=== PATIENT | male | born 1990 | race Caucasian/White ===

== ENCOUNTER 2019-10-15 19:14 | Observation (INO) | payer OTHER ==
[2019-10-15] MEDS ORDERED: Sodium Chloride 0.9% 10 ML Syringe FLUSH PRN (19:49)
[2019-10-15] MEDS ORDERED: Sodium Chloride 0.9% 1,000 ML IV ONE ×2 (19:49→21:15)
[2019-10-15] MEDS ORDERED: Ketorolac 30 MG/ML SDV IVPUSH ONE (19:49)
[2019-10-15] MEDS ORDERED: cefTRIAXone 2 GM in Premix Bag 1 BAG IV ONE (19:49)
[2019-10-15] MEDS ORDERED: Sodium Chloride 0.9% 2.5 ML Syringe FLUSH PRN (19:49)
[2019-10-15] MEDS ORDERED: Acetaminophen 500 MG Tab PO ONE (19:50)
[2019-10-15] MEDS ORDERED: Ondansetron 4 MG/2 ML SDV IVPUSH ONE (19:52)
--- NOTE | 2019-10-15 19:52 | EDM.PDOC ---
ED HPI GENERAL MEDICAL PROBLEM - General Chief Complaint: Genitourinary Problem Stated Complaint: FEVER Time Seen by Provider: 10/15/19 19:29 - History of Present Illness INITIAL COMMENTS - FREE TEXT/NARRATIVE: HISTORY AND PHYSICAL: History of present illness: The patient is a 28-year-old male with no significant past medical history and does not believe he took his flu shot this year and presents with persistent symptoms of fevers and body aches headache sore throat abdominal pain and vomiting the patient says that he had the symptoms last week and was seen in the clinic on October [address] Logan and he had testing performed. Per the computer he had labs influenza strep and a urine which showed signs of a UTI and he was treated with Bactrim. The culture came back resistant to Bactrim and when I asked the patient if he was contacted by the clinic to change his antibiotics he told me that he did get a message but he did not understand and he did not call back. He is currently taking Bactrim for which the E. coli in his urine culture is resistant. The patient tells me he is able to take sips of fluids but he has small sour burps and vomiting in his mouth when he tries to eat solids. Not had any large episodes of vomiting but just burping and having a small amount of vomit in his mouth. He still has urinary symptoms of frequency urgency and burning. He has no flank pain and he does have some diffuse upper abdominal pain with nausea. He has had no diarrhea. He has had no runny nose or drainage but he does have a sore throat and he says he has a diffuse headache similar to what he had last week when he was seen in the clinic. The headache has persisted and it is not changed in location or character. He says that it is all over and it is not necessarily in one location. The last time he took Tylenol was at 8:00 this morning and he is not taking any ibuprofen. Review of systems: As per history of present illness and below otherwise all systems reviewed and negative. Past medical history: As per history of present illness and as reviewed below otherwise noncontributory. Surgical history: As per history of present illness and as reviewed below otherwise noncontributory. Social history: No reported history of drug or alcohol abuse. Family history: As per history of present illness and as reviewed below otherwise noncontributory. Physical exam: General: Well-developed well-nourished thin man who is nontoxic but looks low energy and drained on my evaluation. He is febrile and mildly tachycardic and the remainder of the vitals have also been seen by me. He is speaking clearly without breathlessness or hoarse or muffled voice HEENT: Atraumatic, normocephalic, pupils reactive, negative for conjunctival pallor or scleral icterus, mucous membranes moist, throat clear of exudates and there is some oropharyngeal erythema, there is no cervical adenopathy or nuchal rigidity and no discrete sinus tenderness, neck supple, nontender, trachea midline. Lungs: Clear to auscultation with slightly diminished breath sounds throughout but no wheezing stridor or work of breathing, breath sounds equal bilaterally, chest nontender. Heart: S1S2, regular rhythm and slightly tachycardic rate on my evaluation but no overt murmurs, negative for clicks, rubs, or JVD. Abdomen: Soft, nondistended, diffuse abdominal tenderness more in the upper abdomen but no rebound or guarding and the tenderness is mild and does not localize right or left. Negative for masses or hepatosplenomegaly. Negative for costovertebral tenderness. Pelvis: Stable nontender. Genitourinary: Stickles are descended bilaterally and there is no evidence of any swelling or tenderness. There is no tenderness in the perineal skin no erythematous changes or lesions. The patient indicates the base of the penis on the underside and his as his area of greatest discomfort but there is no anatomic findings on my evaluation Rectal: Deferred. Extremities: Atraumatic, negative for cords or calf pain. Neurovascular unremarkable. Neuro: Awake, alert, oriented. Cranial nerves II through XII unremarkable. Cerebellum unremarkable. Motor and sensory unremarkable throughout. Exam nonfocal. Diagnostics: Influenza rapid strep CBC CMP lactic acid blood cultures UA with micro urine culture chest x-ray CT abd pelvis Therapeutics: IV fluids Toradol Tylenol Zofran motrin tramadol low-dose morphine His labs are from October 11 were reviewed and they did include a urine for gonorrhea and chlamydia which were negative. Patient and family at bedside are aware of all testing results and the patient does overall look clinically improved and his vitals are normalizing. He says that there is still a lot of discomfort with urination and urgency and he is only been making small volumes and says that he feels a lot of pressure in the underside base of his penis with urination. He has no testicular pain or swelling. He also says that he feels less nauseated and would like to try some fluids or popsicle. He says that he still has a headache which is like a headband around the top of his head but it is not posterior and he has no neck pain. I will discussed this case with Dr. Scales for observation admission and the patient is agreeable. 2010: Was discussed with Dr. Scales who agrees with observation admission. Patient is agreeable Impression: Urosepsis secondary to untreated UTI diagnosed last week, rule out prostatitis Headache body aches malaise Definitive disposition and diagnosis as appropriate pending reevaluation and review of above. Body\ Pain Score (Numeric/FACES): 9 - Related Data Allergies Allergy/AdvReac Type Severity Reaction Status Date / Time No Known Allergies Allergy Verified 10/15/19 19:51 Home Meds: Home Meds Sulfamethoxazole/Trimethoprim [Bactrim Ds Tablet] 1 each PO ASDIRECTED 10/15/19 [History] ED ROS GENERAL - Review of Systems Review Of Systems: Comprehensive ROS is negative, except as noted in HPI. ED EXAM, GENERAL - Physical Exam Exam: See Below (See dictation) Course - Vital Signs Last Recorded V/S: Last Vital Signs Temp 37.6 C 10/15/19 22:01 Pulse 77 10/15/19 22:01 Resp 22 H 10/15/19 22:01 BP 102/48 L 10/15/19 22:01 Pulse Ox 95 10/15/19 22:01 - Orders/Labs/Meds Orders: Active Orders 24 hr Category Date Time Status CULTURE BLOOD [BC] Stat Lab 10/15/19 20:15 Received CULTURE BLOOD [BC] Stat Lab 10/15/19 20:34 Received CULTURE STREP A CONFIRMATION [] Stat Lab 10/15/19 20:16 Results CULTURE URINE [] Stat Lab 10/15/19 20:27 Received STREP SCRN A RAPID W CULT CONF [] Stat Lab 10/15/19 20:16 Results Sodium Chloride 0.9% [Normal Saline] 1,000 ml Med 10/15/19 22:30 Active IV ASDIRECTED Sodium Chloride 0.9% [Saline Flush] Med 10/15/19 19:49 Active 10 ml FLUSH ASDIRECTED PRN Sodium Chloride 0.9% [Saline Flush] Med 10/15/19 19:49 Active 2.5 ml FLUSH ASDIRECTED PRN Blood Culture x2 Reflex Set [OM.PC] Stat Ot 10/15/19 19:48 Ordered Saline Lock Insert [OM.PC] Stat Ot 10/15/19 19:47 Ordered Medication Orders Sodium Chloride (Normal Saline) 1,000 mls @ 150 mls/hr IV ASDIRECTED BRADY Sodium Chloride (Saline Flush) 10 ml FLUSH ASDIRECTED PRN PRN Reason: Keep Vein Open Sodium Chloride (Saline Flush) 2.5 ml FLUSH ASDIRECTED PRN PRN Reason: Keep Vein Open Labs: Laboratory Tests 10/15/19 10/15/19 10/15/19 Range/Units 20:15 20:15 20:15 WBC 19.38 H (4.0-11.0) K/uL RBC 4.62 (4.50-5.90) M/uL Hgb 14.2 (13.0-17.0) g/dL Hct 41.3 (38.0-50.0) % MCV 89.4 (80.0-98.0) fL MCH 30.7 (27.0-32.0) pg MCHC 34.4 (31.0-37.0) g/dL RDW Std Deviation 38.8 (28.0-62.0) fl RDW Coeff of Gloria 12 (11.0-15.0) % Plt Count 203 (150-400) K/uL MPV 9.20 (7.40-12.00) fL Neut % (Auto) 89.3 H (48.0-80.0) % Lymph % (Auto) 3.5 L (16.0-40.0) % [place] % (Auto) 7.1 (0.0-15.0) % Eos % (Auto) 0.0 (0.0-7.0) % Baso % (Auto) 0.1 (0.0-1.5) % Neut # (Auto) 17.3 H (1.4-5.7) K/uL Lymph # (Auto) 0.7 (0.6-2.4) K/uL [place] # (Auto) 1.4 H (0.0-0.8) K/uL Eos # (Auto) 0.0 (0.0-0.7) K/uL Baso # (Auto) 0.0 (0.0-0.1) K/uL Nucleated RBC % 0.0 /100WBC Nucleated RBCs # 0 K/uL Lactate 1.6 (0.20-2.00) mmol/L Sodium 138 (136-148) mmol/L Potassium 3.5 (3.5-5.1) mmol/L Chloride 100 (98-107) mmol/L Carbon Dioxide 26.6 (21.0-32.0) mmol/L BUN 14 (7.0-18.0) mg/dL Creatinine 1.3 (0.8-1.3) mg/dL Est Cr Clr Drug Dosing 90.62 mL/min Estimated GFR (MDRD) > 60.0 ml/min Glucose 122 H (74-106) mg/dL Calcium 8.9 (8.5-10.1) mg/dL Total Bilirubin 0.6 (0.2-1.0) mg/dL AST 14 L (15-37) IU/L ALT 19 (14-63) IU/L Alkaline Phosphatase 67 (46-116) U/L Total Protein 8.1 (6.4-8.2) g/dL Albumin 3.9 (3.4-5.0) g/dL Globulin 4.2 H (2.6-4.0) g/dL Albumin/Globulin Ratio 0.9 (0.9-1.6) Urine Color Urine Appearance Urine pH (5.0-8.0) Ur Specific [place] (1.001-1.035) Urine Protein (NEGATIVE) mg/dL Urine Glucose (UA) (NEGATIVE) mg/dL Urine Ketones (NEGATIVE) mg/dL Urine Occult Blood (NEGATIVE) Urine Nitrite (NEGATIVE) Urine Bilirubin (NEGATIVE) Urine Urobilinogen (<2.0) EU/dL Ur Leukocyte Esterase (NEGATIVE) Urine RBC (0-2/HPF) Urine WBC (0-5/HPF) Ur Epithelial Cells (NONE-FEW) Urine Bacteria (NEGATIVE) 10/15/19 Range/Units 20:27 WBC (4.0-11.0) K/uL RBC (4.50-5.90) M/uL Hgb (13.0-17.0) g/dL Hct (38.0-50.0) % MCV (80.0-98.0) fL MCH (27.0-32.0) pg MCHC (31.0-37.0) g/dL RDW Std Deviation (28.0-62.0) fl RDW Coeff of Gloria (11.0-15.0) % Plt Count (150-400) K/uL MPV (7.40-12.00) fL Neut % (Auto) (48.0-80.0) % Lymph % (Auto) (16.0-40.0) % [place] % (Auto) (0.0-15.0) % Eos % (Auto) (0.0-7.0) % Baso % (Auto) (0.0-1.5) % Neut # (Auto) (1.4-5.7) K/uL Lymph # (Auto) (0.6-2.4) K/uL [place] # (Auto) (0.0-0.8) K/uL Eos # (Auto) (0.0-0.7) K/uL Baso # (Auto) (0.0-0.1) K/uL Nucleated RBC % /100WBC Nucleated RBCs # K/uL Lactate (0.20-2.00) mmol/L Sodium (136-148) mmol/L Potassium (3.5-5.1) mmol/L Chloride (98-107) mmol/L Carbon Dioxide (21.0-32.0) mmol/L BUN (7.0-18.0) mg/dL Creatinine (0.8-1.3) mg/dL Est Cr Clr Drug Dosing mL/min Estimated GFR (MDRD) ml/min Glucose (74-106) mg/dL Calcium (8.5-10.1) mg/dL Total Bilirubin (0.2-1.0) mg/dL AST (15-37) IU/L ALT (14-63) IU/L Alkaline Phosphatase (46-116) U/L Total Protein (6.4-8.2) g/dL Albumin (3.4-5.0) g/dL Globulin (2.6-4.0) g/dL Albumin/Globulin Ratio (0.9-1.6) Urine Color YELLOW Urine Appearance CLOUDY Urine pH 6.0 (5.0-8.0) Ur Specific [place] 1.025 (1.001-1.035) Urine Protein NEGATIVE (NEGATIVE) mg/dL Urine Glucose (UA) NEGATIVE (NEGATIVE) mg/dL Urine Ketones NEGATIVE (NEGATIVE) mg/dL Urine Occult Blood MODERATE H (NEGATIVE) Urine Nitrite NEGATIVE (NEGATIVE) Urine Bilirubin NEGATIVE (NEGATIVE) Urine Urobilinogen 0.2 (<2.0) EU/dL Ur Leukocyte Esterase LARGE H (NEGATIVE) Urine RBC 2-4 (0-2/HPF) Urine WBC 70-80 (0-5/HPF) Ur Epithelial Cells OCCASIONAL (NONE-FEW) Urine Bacteria FEW (NEGATIVE) Meds: Medications Generic Name Dose Route Start Last Admin Trade Name Freq PRN Reason Stop Dose Admin Sodium Chloride 1,000 mls @ 150 mls/hr 10/15/19 22:30 Normal Saline IV ASDIRECTED BRADY Sodium Chloride 10 ml 10/15/19 19:49 Saline Flush FLUSH ASDIRECTED PRN Keep Vein Open Sodium Chloride 2.5 ml 10/15/19 19:49 Saline Flush FLUSH ASDIRECTED PRN Keep Vein Open Discontinued Medications Generic Name Dose Route Start Last Admin Trade Name Freq PRN Reason Stop Dose Admin Acetaminophen 1,000 mg 10/15/19 19:50 10/15/19 20:19 Tylenol Extra Strength PO 10/15/19 19:51 1,000 mg ONETIME ONE Administration Ceftriaxone Sodium/Dextrose 2 50 mls @ 100 mls/hr 10/15/19 19:49 10/15/19 20: 20 gm/ Premix IV 10/15/19 20:18 100 mls/hr ONETIME ONE Administration Sodium Chloride 1,000 mls @ 999 mls/hr 10/15/19 19:49 10/15/19 20:20 Normal Saline IV 10/15/19 20:49 999 mls/hr STAT ONE Administration Sodium Chloride 1,000 mls @ 999 mls/hr 10/15/19 21:15 10/15/19 21:20 Normal Saline IV 10/15/19 22:15 999 mls/hr STAT ONE Administration Ibuprofen 800 mg 10/15/19 21:04 10/15/19 21:11 Motrin PO 10/15/19 21:05 800 mg ONETIME ONE Administration Iopamidol 100 ml 10/15/19 21:28 Isovue-370 (76%) IVPUSH 10/15/19 21:29 ONETIME STA Ketorolac Tromethamine 30 mg 10/15/19 19:49 10/15/19 20:19 Toradol IVPUSH 10/15/19 19:50 30 mg ONETIME ONE Administration Morphine Sulfate 2 mg 10/15/19 22:08 Morphine IVPUSH 10/15/19 22:09 ONETIME ONE Ondansetron HCl 4 mg 10/15/19 19:52 10/15/19 20:19 Zofran IVPUSH 10/15/19 19:53 4 mg ONETIME ONE Administration Tramadol HCl 50 mg 10/15/19 21:13 10/15/19 21:19 Ultram PO 10/15/19 21:14 50 mg ONETIME ONE Administration Departure - Departure Time of Disposition: 22:19 Disposition: Refer to Observation Condition: Fair Clinical Impression: UTI (urinary tract infection) Qualifiers: Urinary tract infection type: site unspecified Hematuria presence: without hematuria Qualified Code(s): N39.0 - Urinary tract infection, site not specified Fever Qualifiers: Fever type: unspecified Qualified Code(s): R50.9 - Fever, unspecified - Discharge Information Referrals: Dominique Logan MD [Primary Care Provider] - Forms: ED Department Discharge Sepsis Event Note - Focused Exam Vital Signs: Vital Signs Temp Temp Pulse Resp BP Pulse Ox 10/15/19 22:01 37.6 C 77 22 H 102/48 L 95 10/15/19 21:11 38.1 C 10/15/19 21:02 38.1 C 87 20 108/50 L 97 10/15/19 20:49 38.1 C 10/15/19 20:37 95 18 106/56 L 99 10/15/19 20:19 38.8 C H 10/15/19 19:51 39.0 C H 110 H 16 101/52 L 96 Date Exam was Performed: 10/15/19 Time Exam was Performed: 22:18 - My Orders Last 24 Hours: My Active Orders 10/15/19 19:47 Saline Lock Insert [OM.PC] Stat 10/15/19 19:48 Blood Culture x2 Reflex Set [OM.PC] Stat 10/15/19 19:49 Sodium Chloride 0.9% [Saline Flush] 10 ml FLUSH ASDIRECTED PRN Sodium Chloride 0.9% [Saline Flush] 2.5 ml FLUSH ASDIRECTED PRN 10/15/19 20:15 CULTURE BLOOD [BC] Stat 10/15/19 20:16 CULTURE STREP A CONFIRMATION [RM] Stat STREP SCRN A RAPID W CULT CONF [RM] Stat 10/15/19 20:27 CULTURE URINE [RM] Stat 10/15/19 20:34 CULTURE BLOOD [BC] Stat 10/15/19 22:30 Sodium Chloride 0.9% [Normal Saline] 1,000 ml IV ASDIRECTED - Assessment/Plan Last 24 Hours: My Active Orders 10/15/19 19:47 Saline Lock Insert [OM.PC] Stat 10/15/19 19:48 Blood Culture x2 Reflex Set [OM.PC] Stat 10/15/19 19:49 Sodium Chloride 0.9% [Saline Flush] 10 ml FLUSH ASDIRECTED PRN Sodium Chloride 0.9% [Saline Flush] 2.5 ml FLUSH ASDIRECTED PRN 10/15/19 20:15 CULTURE BLOOD [BC] Stat 10/15/19 20:16 CULTURE STREP A CONFIRMATION [RM] Stat STREP SCRN A RAPID W CULT CONF [RM] Stat 10/15/19 20:27 CULTURE URINE [RM] Stat 10/15/19 20:34 CULTURE BLOOD [BC] Stat 10/15/19 22:30 Sodium Chloride 0.9% [Normal Saline] 1,000 ml IV ASDIRECTED
--- NOTE | 2019-10-15 20:30 | CR ---
Chest: 2 views of the chest were obtained. Comparison: No previous chest imaging. Heart size and mediastinum are normal. Lungs are clear. No acute parenchymal change is seen. Bony structures appear within normal limits for the patient's age. Impression: 1. Nothing acute is seen on 2 view chest x-ray. Diagnostic code #1 Study was dictated in [place] Standard Time
[2019-10-15 20:54] LABS: BLOOD UREA NITROGEN,BUN 14 mg/dL (7.0-18.0); CARBON DIOXIDE,CO2 26.6 mmol/L (21.0-32.0); CHLORIDE,CL 100 mmol/L (98-107); GLUCOSE RANDOM 122 mg/dL (74-106); POTASSIUM,K 3.5 mmol/L (3.5-5.1); SODIUM,NA 138 mmol/L (136-148)
[2019-10-15] MEDS ORDERED: Ibuprofen 800 MG Tab PO ONE (21:04)
[2019-10-15] MEDS ORDERED: traMADol 50 MG Tab PO ONE (21:13)
[2019-10-15] MEDS ORDERED: Iopamidol 755 Mg/ML 100 ML Bottle IVPUSH STA (21:28)
--- NOTE | 2019-10-15 21:58 | CT ---
Indication: Abdominal pain Technique: Contrast enhanced axial CT imaging through the abdomen and pelvis. 100 mL Isovue 370 contrast agent was administered intravenously. Sagittal and coronal reconstructions are provided. Comparison: None Findings: There is no significant abnormality of the liver, gallbladder, spleen, pancreas, adrenal glands, and kidneys. The portal vein is patent. There is normal caliber of the abdominal aorta. There is no abdominal lymphadenopathy. The stomach and duodenum are unremarkable. There are no abnormally dilated small bowel loops. The appendix is noninflamed. There is no colonic wall thickening. No inflammatory changes are demonstrated in the mesentery. There is no free intraperitoneal fluid or air. Note is made of presence of bilateral chronic L5 pars interarticularis defects. There is no significant spondylolisthesis. The included lung bases are clear. Impression: 1. No acute process demonstrated in the abdomen and pelvis. 2. Incidental note of bilateral L5 pars defects without spondylolisthesis. Please note that all CT scans at this facility use dose modulation, iterative reconstruction, and/or weight-based dosing when appropriate to reduce radiation dose to as low as reasonably achievable. Dictated by José Luis Wang MD @ Oct 15 2019 9:44PM Signed by Dr. José Luis Wang @ Oct 15 2019 9:56PM
[2019-10-15] MEDS ORDERED: Morphine 2 MG/ML Syringe IVPUSH ONE (22:08)
[2019-10-15] MEDS ORDERED: Sodium Chloride 0.9% 1,000 ML IV SCH (22:30)
[2019-10-16] MEDS ORDERED: Ondansetron 4 MG/2 ML SDV IVPUSH PRN ×2 (04:18→07:49)
[2019-10-16] MEDS: Sodium Chloride 0.9% 1,000 ML IV SCH ×3 (04:59→21:11)
[2019-10-16 06:33] LABS: BLOOD UREA NITROGEN,BUN 11 mg/dL (7.0-18.0); CARBON DIOXIDE,CO2 25.1 mmol/L (21.0-32.0); CHLORIDE,CL 105 mmol/L (98-107); GLUCOSE RANDOM 119 mg/dL (74-106); POTASSIUM,K 3.3 mmol/L (3.5-5.1); SODIUM,NA 138 mmol/L (136-148)
[2019-10-16] MEDS ORDERED: Potassium Chloride 20 MEQ Tab.ER PO ONE (07:38)
[2019-10-16] MEDS: Acetaminophen 325 MG Tab PO PRN ×2 (08:10→13:12)
[2019-10-16] MEDS ORDERED: Magnesium Sulfate/Water 2 GM in Premix Bag 1 BAG IV ONE (11:59)
[2019-10-16] MEDS ORDERED: Enoxaparin 40 MG/0.4 ML Syringe SUBCUT SCH (12:00)
[2019-10-16] MEDS ORDERED: Sodium Chloride 0.9% 1,000 ML IV ONE (12:02)
--- NOTE | 2019-10-16 12:03 | PCM.HP.2 ---
H&P History of Present Illness - General Date of Service: 10/16/19 Admit Problem/Dx: Admission Diagnosis/Problem Admission Diagnosis/Problem Urosepsis - History of Present Illness Initial Comments - Free Text/Narative: The patient is a 28 year old male who denies significant past medical history who presented to the ER last night with fever/PALMA, body aches, chills, burning with urination, increased urinary urgency/frequency. Reports went to PCP on , diagnosed with UTI, sent home on Bactrim, urine culture grew out Ecoli resistant to Bactrim. At that appt she also tested him for gonorrhea, chlaymdia , syphillis, and HIV which were all negative Denies chest pain, shortness of breath, or abdominal pain. Eating and drinking ok. No hx of UTI in the past. In the ER, patient had leukocytosis of 19, UA with signs of infection, negative influenza/strep. CXR negative. CT ab/pelvis negative for acute issues. In the ER, he was febrile with temp of 102.2, tachycardic, and had soft blood pressures. Given Tylenol, Rocephin, ibuprofen, Toradol, morphine, zofran, Tramadol. PCP- Dr. Logan Body\ Pain Score (Numeric/FACES): 9 headache Pain Score (Numeric/FACES): 7 - Related Data Allergies/Adverse Reactions: Allergies Allergy/AdvReac Type Severity Reaction Status Date / Time No Known Allergies Allergy Verified 10/16/19 00:46 Home Medications: Home Meds Sulfamethoxazole/Trimethoprim [Bactrim Ds Tablet] 1 each PO ASDIRECTED 10/15/19 [History] Past Medical History - Past Health History Medical/Surgical History: Denies Medical/Surgical History HEENT History: Reports: None Cardiovascular History: Reports: None Respiratory History: Reports: None Gastrointestinal History: Reports: None Genitourinary History: Reports: None Musculoskeletal History: Reports: None Neurological History: Reports: None Psychiatric History: Reports: None Endocrine/Metabolic History: Reports: None Hematologic History: Reports: None Oncologic (Cancer) History: Reports: None Dermatologic History: Reports: None - Infectious Disease History Infectious Disease History: Reports: None Social & Family History - Family History Family Medical History: Noncontributory - Tobacco Use Smoking Status *Q: Current Every Day Smoker Years of Tobacco use: 22 Packs/Tins Daily: 1.2 - Caffeine Use Caffeine Use: Reports: Soda - Recreational Drug Use Recreational Drug Use: No H&P Review of Systems - Review of Systems: Review Of Systems: See Below General: Reports: Fever, Chills HEENT: Reports: Headaches Pulmonary: Reports: No Symptoms Cardiovascular: Reports: No Symptoms Gastrointestinal: Reports: Nausea. Denies: Vomiting Genitourinary: Reports: Dysuria, Frequency, Burning Musculoskeletal: Reports: No Symptoms Skin: Reports: No Symptoms Psychiatric: Reports: No Symptoms Neurological: Reports: No Symptoms Hematologic/Lymphatic: Reports: No Symptoms Immunologic: Reports: No Symptoms Exam - Exam Exam: See Below - Vital Signs Vital Signs: Last Vital Signs Temp 98.7 F 10/16/19 04:30 Pulse 87 10/16/19 04:30 Resp 18 10/16/19 04:30 BP 97/54 L 10/16/19 04:30 Pulse Ox 98 10/16/19 04:30 Weight: 84.051 kg - Exam General: Alert, Oriented HEENT: Conjunctiva Clear, EOMI, Mucosa Moist & Wright, Posterior Pharynx Clear, Pupils Equal, Pupils Reactive Neck: Supple Lungs: Clear to Auscultation, Normal Respiratory Effort Cardiovascular: Regular Rate, Regular Rhythm GI/Abdominal Exam: Normal Bowel Sounds, Soft, Non-Tender, No Distention (Male) Exam: Normal Inspection, Normal Prostate. No: Penile Lesions, Scrotal Swelling, Scrotum Tenderness (L), Scrotum Tenderness (R), Testicular Mass, Testicular Tenderness (L), Testicular Tenderness (R), Urethral Discharge Rectal (Males) Exam: Normal Exam, Normal Rectal Tone, Prostate Normal Extremities: No Pedal Edema Skin: Warm, Dry, Intact Neuro Extensive - Mental Status: Alert, Oriented x3 Psychiatric: Alert, Normal Affect, Normal Mood - Patient Data Lab Results Last 24 hrs: Laboratory Results - last 24 hr 10/15/19 10/15/19 10/15/19 Range/Units 20:15 20:15 20:15 WBC 19.38 H (4.0-11.0) K/uL RBC 4.62 (4.50-5.90) M/uL Hgb 14.2 (13.0-17.0) g/dL Hct 41.3 (38.0-50.0) % MCV 89.4 (80.0-98.0) fL MCH 30.7 (27.0-32.0) pg MCHC 34.4 (31.0-37.0) g/dL RDW Std Deviation 38.8 (28.0-62.0) fl RDW Coeff of Gloria 12 (11.0-15.0) % Plt Count 203 (150-400) K/uL MPV 9.20 (7.40-12.00) fL Neut % (Auto) 89.3 H (48.0-80.0) % Lymph % (Auto) 3.5 L (16.0-40.0) % Lamar % (Auto) 7.1 (0.0-15.0) % Eos % (Auto) 0.0 (0.0-7.0) % Baso % (Auto) 0.1 (0.0-1.5) % Neut # (Auto) 17.3 H (1.4-5.7) K/uL Lymph # (Auto) 0.7 (0.6-2.4) K/uL Lamar # (Auto) 1.4 H (0.0-0.8) K/uL Eos # (Auto) 0.0 (0.0-0.7) K/uL Baso # (Auto) 0.0 (0.0-0.1) K/uL Nucleated RBC % 0.0 /100WBC Nucleated RBCs # 0 K/uL Lactate 1.6 (0.20-2.00) mmol/L Sodium 138 (136-148) mmol/L Potassium 3.5 (3.5-5.1) mmol/L Chloride 100 (98-107) mmol/L Carbon Dioxide 26.6 (21.0-32.0) mmol/L BUN 14 (7.0-18.0) mg/dL Creatinine 1.3 (0.8-1.3) mg/dL Est Cr Clr Drug Dosing 90.62 mL/min Estimated GFR (MDRD) > 60.0 ml/min Glucose 122 H (74-106) mg/dL Calcium 8.9 (8.5-10.1) mg/dL Magnesium (1.8-2.4) mg/dL Total Bilirubin 0.6 (0.2-1.0) mg/dL AST 14 L (15-37) IU/L ALT 19 (14-63) IU/L Alkaline Phosphatase 67 (46-116) U/L Total Protein 8.1 (6.4-8.2) g/dL Albumin 3.9 (3.4-5.0) g/dL Globulin 4.2 H (2.6-4.0) g/dL Albumin/Globulin Ratio 0.9 (0.9-1.6) Urine Color Urine Appearance Urine pH (5.0-8.0) Ur Specific [place] (1.001-1.035) Urine Protein (NEGATIVE) mg/dL Urine Glucose (UA) (NEGATIVE) mg/dL Urine Ketones (NEGATIVE) mg/dL Urine Occult Blood (NEGATIVE) Urine Nitrite (NEGATIVE) Urine Bilirubin (NEGATIVE) Urine Urobilinogen (<2.0) EU/dL Ur Leukocyte Esterase (NEGATIVE) Urine RBC (0-2/HPF) Urine WBC (0-5/HPF) Ur Epithelial Cells (NONE-FEW) Urine Bacteria (NEGATIVE) 10/15/19 10/16/19 10/16/19 Range/Units 20:27 05:45 05:45 WBC 18.39 H (4.0-11.0) K/uL RBC 3.96 L (4.50-5.90) M/uL Hgb 12.1 L (13.0-17.0) g/dL Hct 35.5 L (38.0-50.0) % MCV 89.6 (80.0-98.0) fL MCH 30.6 (27.0-32.0) pg MCHC 34.1 (31.0-37.0) g/dL RDW Std Deviation 39.5 (28.0-62.0) fl RDW Coeff of Gloria 12 (11.0-15.0) % Plt Count 152 (150-400) K/uL MPV 9.30 (7.40-12.00) fL Neut % (Auto) 86.8 H (48.0-80.0) % Lymph % (Auto) 4.8 L (16.0-40.0) % Lamar % (Auto) 8.2 (0.0-15.0) % Eos % (Auto) 0.1 (0.0-7.0) % Baso % (Auto) 0.1 (0.0-1.5) % Neut # (Auto) 16.0 H (1.4-5.7) K/uL Lymph # (Auto) 0.9 (0.6-2.4) K/uL Lamar # (Auto) 1.5 H (0.0-0.8) K/uL Eos # (Auto) 0.0 (0.0-0.7) K/uL Baso # (Auto) 0.0 (0.0-0.1) K/uL Nucleated RBC % 0.0 /100WBC Nucleated RBCs # 0 K/uL Lactate (0.20-2.00) mmol/L Sodium 138 (136-148) mmol/L Potassium 3.3 L (3.5-5.1) mmol/L Chloride 105 (98-107) mmol/L Carbon Dioxide 25.1 (21.0-32.0) mmol/L BUN 11 (7.0-18.0) mg/dL Creatinine 1.0 (0.8-1.3) mg/dL Est Cr Clr Drug Dosing 125.58 mL/min Estimated GFR (MDRD) > 60.0 ml/min Glucose 119 H (74-106) mg/dL Calcium 7.7 L (8.5-10.1) mg/dL Magnesium (1.8-2.4) mg/dL Total Bilirubin (0.2-1.0) mg/dL AST (15-37) IU/L ALT (14-63) IU/L Alkaline Phosphatase (46-116) U/L Total Protein (6.4-8.2) g/dL Albumin (3.4-5.0) g/dL Globulin (2.6-4.0) g/dL Albumin/Globulin Ratio (0.9-1.6) Urine Color YELLOW Urine Appearance CLOUDY Urine pH 6.0 (5.0-8.0) Ur Specific [place] 1.025 (1.001-1.035) Urine Protein NEGATIVE (NEGATIVE) mg/dL Urine Glucose (UA) NEGATIVE (NEGATIVE) mg/dL Urine Ketones NEGATIVE (NEGATIVE) mg/dL Urine Occult Blood MODERATE H (NEGATIVE) Urine Nitrite NEGATIVE (NEGATIVE) Urine Bilirubin NEGATIVE (NEGATIVE) Urine Urobilinogen 0.2 (<2.0) EU/dL Ur Leukocyte Esterase LARGE H (NEGATIVE) Urine RBC 2-4 (0-2/HPF) Urine WBC 70-80 (0-5/HPF) Ur Epithelial Cells OCCASIONAL (NONE-FEW) Urine Bacteria FEW (NEGATIVE) 10/16/19 Range/Units 05:45 WBC (4.0-11.0) K/uL RBC (4.50-5.90) M/uL Hgb (13.0-17.0) g/dL Hct (38.0-50.0) % MCV (80.0-98.0) fL MCH (27.0-32.0) pg MCHC (31.0-37.0) g/dL RDW Std Deviation (28.0-62.0) fl RDW Coeff of Gloria (11.0-15.0) % Plt Count (150-400) K/uL MPV (7.40-12.00) fL Neut % (Auto) (48.0-80.0) % Lymph % (Auto) (16.0-40.0) % Lamar % (Auto) (0.0-15.0) % Eos % (Auto) (0.0-7.0) % Baso % (Auto) (0.0-1.5) % Neut # (Auto) (1.4-5.7) K/uL Lymph # (Auto) (0.6-2.4) K/uL Lamar # (Auto) (0.0-0.8) K/uL Eos # (Auto) (0.0-0.7) K/uL Baso # (Auto) (0.0-0.1) K/uL Nucleated RBC % /100WBC Nucleated RBCs # K/uL Lactate (0.20-2.00) mmol/L Sodium (136-148) mmol/L Potassium (3.5-5.1) mmol/L Chloride (98-107) mmol/L Carbon Dioxide (21.0-32.0) mmol/L BUN (7.0-18.0) mg/dL Creatinine (0.8-1.3) mg/dL Est Cr Clr Drug Dosing mL/min Estimated GFR (MDRD) ml/min Glucose (74-106) mg/dL Calcium (8.5-10.1) mg/dL Magnesium 1.6 L (1.8-2.4) mg/dL Total Bilirubin (0.2-1.0) mg/dL AST (15-37) IU/L ALT (14-63) IU/L Alkaline Phosphatase (46-116) U/L Total Protein (6.4-8.2) g/dL Albumin (3.4-5.0) g/dL Globulin (2.6-4.0) g/dL Albumin/Globulin Ratio (0.9-1.6) Urine Color Urine Appearance Urine pH (5.0-8.0) Ur Specific [place] (1.001-1.035) Urine Protein (NEGATIVE) mg/dL Urine Glucose (UA) (NEGATIVE) mg/dL Urine Ketones (NEGATIVE) mg/dL Urine Occult Blood (NEGATIVE) Urine Nitrite (NEGATIVE) Urine Bilirubin (NEGATIVE) Urine Urobilinogen (<2.0) EU/dL Ur Leukocyte Esterase (NEGATIVE) Urine RBC (0-2/HPF) Urine WBC (0-5/HPF) Ur Epithelial Cells (NONE-FEW) Urine Bacteria (NEGATIVE) Result Diagrams: 10/16/19 05:45 10/16/19 05:45 Navdeep Results Last 24 hrs: Microbiology 10/15/19 20:16 Group A Streptococcus Rapid Screen - Final Throat NEGATIVE STREP A SCREEN REFERENCE RANGE: NEGATIVE 10/15/19 19:33 Influenza Type A Antigen Screen - Final Nasopharyngeal Swab NEGATIVE INFLUENZA A VIRUS AG REFERENCE RANGE: NEGATIVE Influenza Type B Antigen Screen - Final NEGATIVE INFLUENZA B VIRUS AG REFERENCE RANGE: NEGATIVE Sepsis Event Note - Evaluation Sepsis Screening Result: Sepsis Risk - Focused Exam Vital Signs: Vital Signs Temp Pulse Resp BP Pulse Ox 10/16/19 04:30 98.7 F 87 18 97/54 L 98 Date Exam was Performed: 10/16/19 Time Exam was Performed: 13:10 Problem List Initiated/Reviewed/Updated: Yes Orders Last 24hrs: Active Orders 24 hr Category Date Time Status Patient Status [ADT] Stat ADT 10/15/19 22:21 Active Intake and Output [RC] ASDIRECTED Care 10/16/19 11:59 Ordered Vital Signs [RC] PER UNIT ROUTINE Care 10/16/19 11:59 Ordered Regular Diet [DIET] Diet 10/16/19 Lunch Ordered CULTURE BLOOD [BC] Stat Lab 10/15/19 20:15 Received CULTURE BLOOD [BC] Stat Lab 10/15/19 20:34 Received CULTURE STREP A CONFIRMATION [RM] Stat Lab 10/15/19 20:16 Results CULTURE URINE [] Stat Lab 10/15/19 20:27 Received STREP SCRN A RAPID W CULT CONF [] Stat Lab 10/15/19 20:16 Results Acetaminophen [Tylenol] Med 10/16/19 07:49 Active 650 mg PO Q4H PRN Enoxaparin [Lovenox] Med 10/16/19 12:00 Ordered 40 mg SUBCUT Q24H Magnesium Sulfate/Water [Magnesium Sulfate in Water Med 10/16/19 11:59 Ordered Premix] 2 gm Premix Bag 1 bag IV ONETIME Nicotine [Habitrol] Med 10/16/19 12:00 Ordered 14 mg TRDERM DAILY Ondansetron [Zofran] Med 10/16/19 04:18 Active 4 mg IVPUSH Q4H PRN Ondansetron [Zofran] Med 10/16/19 07:49 Active 4 mg IVPUSH Q4H PRN Sodium Chloride 0.9% [Normal Saline] 1,000 ml Med 10/15/19 22:30 Active IV ASDIRECTED Sodium Chloride 0.9% [Normal Saline] 1,000 ml Med 10/16/19 00:15 Active IV ASDIRECTED Sodium Chloride 0.9% [Normal Saline] 1,000 ml Med 10/16/19 12:02 Ordered IV STAT Sodium Chloride 0.9% [Saline Flush] Med 10/15/19 19:49 Active 10 ml FLUSH ASDIRECTED PRN Sodium Chloride 0.9% [Saline Flush] Med 10/15/19 19:49 Active 2.5 ml FLUSH ASDIRECTED PRN cefTRIAXone [Rocephin in Dextrose,Iso-Osm 2 GM/50 ML] 2 Med 10/16/19 18:00 Active gm Premix Bag 1 bag IV Q24H Blood Culture x2 Reflex Set [OM.PC] Stat Oth 10/15/19 19:48 Ordered Saline Lock Insert [OM.PC] Stat Oth 10/15/19 19:47 Ordered Resuscitation Status Routine Resus Stat 10/16/19 11:59 Ordered Medication Orders Acetaminophen (Tylenol) 650 mg PO Q4H PRN PRN Reason: Pain/Fever Last Admin: 10/16/19 08:10 Dose: 650 mg Enoxaparin Sodium (Lovenox) 40 mg SUBCUT Q24H [facility] Sodium Chloride (Normal Saline) 1,000 mls @ 150 mls/hr IV ASDIRECTED [facility] Last Admin: 10/15/19 23:15 Dose: 150 mls/hr Sodium Chloride (Normal Saline) 1,000 mls @ 150 mls/hr IV ASDIRECTED [facility] Last Admin: 10/16/19 04:59 Dose: 150 mls/hr Ceftriaxone Sodium/Dextrose 2 (gm/ Premix) 50 mls @ 100 mls/hr IV Q24H [facility] Magnesium Sulfate 2 gm/ Premix 50 mls @ 25 mls/hr IV ONETIME ONE Stop: 10/16/19 13:58 Nicotine (Habitrol) 14 mg TRDERM DAILY [facility] Ondansetron HCl (Zofran) 4 mg IVPUSH Q4H PRN PRN Reason: Nausea Last Admin: 10/16/19 04:57 Dose: 4 mg Ondansetron HCl (Zofran) 4 mg IVPUSH Q4H PRN PRN Reason: Nausea/Vomiting Sodium Chloride (Saline Flush) 10 ml FLUSH ASDIRECTED PRN PRN Reason: Keep Vein Open Sodium Chloride (Saline Flush) 2.5 ml FLUSH ASDIRECTED PRN PRN Reason: Keep Vein Open Assessment/Plan Comment:: 1.Admit for observation 2. Code status- Full 3. Vitals per routine 4. I/Os per routine 5. DVT with Lovenox 6. Diet- regular 7. Sepsis secondary to UTI- afebrile overnight, tachycardia resolved, BP still soft, will 1 L bolus. Continue Rocephin and wait for UC. 8.Hypokalemia- replaced and will recheck in AM 9. Hypomagnesemia- replace and will recheck in AM.
[2019-10-16] MEDS: Nicotine 14 MG/24 Hr Patch TRDERM SCH (12:27)
[2019-10-16] MEDS ORDERED: cefTRIAXone 2 GM in Premix Bag 1 BAG IV SCH (18:00)
[2019-10-16] MEDS: Ibuprofen 600 MG Tab PO PRN (18:33)
[2019-10-17] MEDS: Sodium Chloride 0.9% 1,000 ML IV SCH (04:11)
[2019-10-17] MEDS: Acetaminophen 325 MG Tab PO PRN (06:53)
[2019-10-17 07:05] LABS: BLOOD UREA NITROGEN,BUN 5 mg/dL (7.0-18.0); CARBON DIOXIDE,CO2 28.1 mmol/L (21.0-32.0); CHLORIDE,CL 110 mmol/L (98-107); GLUCOSE RANDOM 90 mg/dL (74-106); POTASSIUM,K 4.8 mmol/L (3.5-5.1); SODIUM,NA 143 mmol/L (136-148)
[2019-10-17] MEDS: Nicotine 14 MG/24 Hr Patch TRDERM SCH (09:06)
[2019-10-17] MEDS: Ibuprofen 600 MG Tab PO PRN (09:09)
--- NOTE | 2019-10-17 09:13 | PCM.DCSUM1 ---
Discharge Summary - Hospital Course HPI Initial Comments: Admission Date: 10/15/19 Discharge Date: 10/17/19 Admission Diagnosis: 1. Sepsis secondary to UTI 2. Hypokalemia 3. Hypomagnesemia 4. Tobacco use disorder Discharge Diagnosis: 1. Sepsis secondary to Ecoli UTI- discharge 2. Hypokalemia-resolved 3. Hypomagnesemia-resolved 4. Tobacco use disorder Procedures: None Consults: None Hospital Course: The patient is a 28 year old male who denies significant past medical history who presented to the ER last night with fever/PALMA, body aches, chills, burning with urination, increased urinary urgency/frequency. Reports went to PCP on 10/11, diagnosed with UTI, sent home on Bactrim, urine culture grew out Ecoli resistant to Bactrim. At that appt she also tested him for gonorrhea, chlamydia, syphilis, and HIV which were all negative. In the ER, patient had leukocytosis of 19, UA with signs of infection, negative influenza/ strep. CXR negative. CT ab/pelvis negative for acute issues. In the ER, he was febrile with temp of 102.2, tachycardic, and had soft blood pressures. Given Tylenol, pain control, Rocephin, and IVF in ER. Was admitted to medical floor, continued on Rocephin. Urine culture grew out Ecoli sensitive to everything except Bactrim and ampicillin. Continued on IVF. Patient remained afebrile and tachycardia resolved. White count trended down. Found to have low potassium and magnesium, these were replaced and resolved. Given nicotine patch for tobacco use. By day of discharge, patient felt better and was requesting discharge. Disposition: Home Discharge Condition: vitals stable, tolerating oral diet, ambulating without difficulty, symptom improvement Discharge Instructions: regular diet as tolerated, activity as tolerated, take medications as prescribed. Symptoms to report to physician include fever/chills , chest pain, shortness of breath, abdominal pain, erythema, drainage/discharge , or not improving as expected. Discharge Medications: Keflex 500 mg PO BID x 8 days Follow-up: PCP- Dr. Logan 10/27/19 - Discharge Data Discharge Date: 10/17/19 Discharge Disposition: Home, Self-Care 01 Condition: Fair - Referral to Home Health Primary Care Physician: Dominique Logan MD - Discharge Plan Prescriptions/Med Rec: cephALEXin [Keflex] 500 mg PO BID 8 Days #16 cap Home Medications: Home Meds cephALEXin [Keflex] 500 mg PO BID 8 Days #16 cap 10/17/19 [Rx] Patient Handouts: Urosepsis Referrals: Dominique Logan MD [Primary Care Provider] - 10/27/19 10:00 am - Discharge Summary/Plan Comment DC Time >30 min.: No - Patient Data Vitals - Most Recent: Last Vital Signs Temp 96.3 F 10/17/19 07:28 Pulse 54 L 10/17/19 07:28 Resp 14 10/17/19 07:28 BP 101/55 L 10/17/19 07:28 Pulse Ox 100 10/17/19 07:28 Weight - Most Recent: 84.051 kg I&O - Last 24 hours: Intake & Output 10/16/19 10/17/19 10/17/19 22:59 06:59 14:59 Intake Total 2009 3330 Output Total 1450 1500 Balance 560 1830 Lab Results - Last 24 hrs: Laboratory Results - last 24 hr 10/17/19 10/17/19 Range/Units 06:32 06:32 WBC 10.37 (4.0-11.0) K/uL RBC 3.77 L (4.50-5.90) M/uL Hgb 11.6 L (13.0-17.0) g/dL Hct 34.7 L (38.0-50.0) % MCV 92.0 (80.0-98.0) fL MCH 30.8 (27.0-32.0) pg MCHC 33.4 (31.0-37.0) g/dL RDW Std Deviation 42.2 (28.0-62.0) fl RDW Coeff of Gloria 13 (11.0-15.0) % Plt Count 124 L (150-400) K/uL MPV 9.50 (7.40-12.00) fL Neut % (Auto) 74.4 (48.0-80.0) % Lymph % (Auto) 15.1 L (16.0-40.0) % [place] % (Auto) 8.9 (0.0-15.0) % Eos % (Auto) 1.4 (0.0-7.0) % Baso % (Auto) 0.2 (0.0-1.5) % Neut # (Auto) 7.7 H (1.4-5.7) K/uL Lymph # (Auto) 1.6 (0.6-2.4) K/uL [place] # (Auto) 0.9 H (0.0-0.8) K/uL Eos # (Auto) 0.2 (0.0-0.7) K/uL Baso # (Auto) 0.0 (0.0-0.1) K/uL Nucleated RBC % 0.0 /100WBC Nucleated RBCs # 0 K/uL Sodium 143 (136-148) mmol/L Potassium 4.8 (3.5-5.1) mmol/L Chloride 110 H (98-107) mmol/L Carbon Dioxide 28.1 (21.0-32.0) mmol/L BUN 5 L (7.0-18.0) mg/dL Creatinine 1.0 (0.8-1.3) mg/dL Est Cr Clr Drug Dosing 125.58 mL/min Estimated GFR (MDRD) > 60.0 ml/min Glucose 90 (74-106) mg/dL Calcium 8.4 L (8.5-10.1) mg/dL Magnesium 2.0 (1.8-2.4) mg/dL BENJI Results - Last 24 hrs: Microbiology 10/15/19 20:27 Urine Culture - Final Urine, Clean Catch Escherichia Coli 10/15/19 20:34 Aerobic Blood Culture - Preliminary Blood - Venous - Lab Draw NO GROWTH AFTER 1 DAY Anaerobic Blood Culture - Preliminary NO GROWTH AFTER 1 DAY 10/15/19 20:15 Aerobic Blood Culture - Preliminary Blood - Venous NO GROWTH AFTER 1 DAY Anaerobic Blood Culture - Preliminary NO GROWTH AFTER 1 DAY Med Orders - Current: Current Medications Acetaminophen (Tylenol) 650 mg PO Q4H PRN PRN Reason: Pain/Fever Last Admin: 10/17/19 06:53 Dose: 650 mg Enoxaparin Sodium (Lovenox) 40 mg SUBCUT Q24H [facility] Last Admin: 10/16/19 12:26 Dose: 40 mg Sodium Chloride (Normal Saline) 1,000 mls @ 150 mls/hr IV ASDIRECTED [facility] Last Admin: 10/17/19 04:11 Dose: 150 mls/hr Ceftriaxone Sodium/Dextrose 2 (gm/ Premix) 50 mls @ 100 mls/hr IV Q24H [facility] Last Admin: 10/16/19 18:27 Dose: 100 mls/hr Ibuprofen (Motrin) 600 mg PO Q6H PRN PRN Reason: Pain Last Admin: 10/16/19 18:33 Dose: 600 mg Nicotine (Habitrol) 14 mg TRDERM DAILY [facility] Last Admin: 10/16/19 12:27 Dose: 14 mg Ondansetron HCl (Zofran) 4 mg IVPUSH Q4H PRN PRN Reason: Nausea Last Admin: 10/16/19 04:57 Dose: 4 mg Ondansetron HCl (Zofran) 4 mg IVPUSH Q4H PRN PRN Reason: Nausea/Vomiting Sodium Chloride (Saline Flush) 10 ml FLUSH ASDIRECTED PRN PRN Reason: Keep Vein Open Sodium Chloride (Saline Flush) 2.5 ml FLUSH ASDIRECTED PRN PRN Reason: Keep Vein Open Discontinued Medications Acetaminophen (Tylenol Extra Strength) 1,000 mg PO ONETIME ONE Stop: 10/15/19 19:51 Last Admin: 10/15/19 20:19 Dose: 1,000 mg Ceftriaxone Sodium/Dextrose 2 (gm/ Premix) 50 mls @ 100 mls/hr IV ONETIME ONE Stop: 10/15/19 20:18 Last Admin: 10/15/19 20:20 Dose: 100 mls/hr Sodium Chloride (Normal Saline) 1,000 mls @ 999 mls/hr IV STAT ONE Stop: 10/15/19 20:49 Last Admin: 10/15/19 20:20 Dose: 999 mls/hr Sodium Chloride (Normal Saline) 1,000 mls @ 999 mls/hr IV STAT ONE Stop: 10/15/19 22:15 Last Admin: 10/15/19 21:20 Dose: 999 mls/hr Sodium Chloride (Normal Saline) 1,000 mls @ 150 mls/hr IV ASDIRECTED [facility] Last Admin: 10/15/19 23:15 Dose: 150 mls/hr Magnesium Sulfate 2 gm/ Premix 50 mls @ 25 mls/hr IV ONETIME ONE Stop: 10/16/19 13:58 Last Admin: 10/16/19 12:22 Dose: 25 mls/hr Sodium Chloride (Normal Saline) 1,000 mls @ 999 mls/hr IV STAT ONE Stop: 10/16/19 13:02 Last Admin: 10/16/19 12:16 Dose: 999 mls/hr Ibuprofen (Motrin) 800 mg PO ONETIME ONE Stop: 10/15/19 21:05 Last Admin: 10/15/19 21:11 Dose: 800 mg Iopamidol (Isovue-370 (76%)) 100 ml IVPUSH ONETIME STA Stop: 10/15/19 21:29 Last Admin: 10/16/19 00:19 Dose: 100 ml Ketorolac Tromethamine (Toradol) 30 mg IVPUSH ONETIME ONE Stop: 10/15/19 19:50 Last Admin: 10/15/19 20:19 Dose: 30 mg Morphine Sulfate (Morphine) 2 mg IVPUSH ONETIME ONE Stop: 10/15/19 22:09 Last Admin: 10/15/19 22:21 Dose: 2 mg Ondansetron HCl (Zofran) 4 mg IVPUSH ONETIME ONE Stop: 10/15/19 19:53 Last Admin: 10/15/19 20:19 Dose: 4 mg Potassium Chloride (Klor-Con M20) 40 meq PO ONETIME ONE Stop: 10/16/19 07:39 Last Admin: 10/16/19 08:10 Dose: 40 meq Tramadol HCl (Ultram) 50 mg PO ONETIME ONE Stop: 10/15/19 21:14 Last Admin: 10/15/19 21:19 Dose: 50 mg
== END 2019-10-17 11:18 | disposition home or self-care (01) ==
LOC: MW.ED 19:14 → MW.MS 22:21
PROVIDERS: ADMIT Internal Medicine; ATTEND Internal Medicine
DX: A41.51 Sepsis due to Escherichia coli [E. coli] (principal); N39.0 Urinary tract infection, site not specified; E87.6 Hypokalemia; E83.42 Hypomagnesemia; F17.210 Nicotine dependence, cigarettes, uncomplicated; Z79.2 Long term (current) use of antibiotics
CPT/HCPCS: 36415; 71046; 74177; 80048; 80053; 81001; 83605; 83735; 85025; 87040; 87081; 87086; 87088; 87186; 87804; 87880; A9270; J0696; J1650; J1885; J2270; J2405; J3475; J7030; Q9967; 96361; 96365; 96366; 96372; 96374; 96375; 96376; 99285-25; G0378

== ENCOUNTER 2022-03-31 00:35 | Emergency (ER) | payer SELFPAY | END 2022-03-31 06:58 | disposition left against medical advice (07) | LOC: MW.ED 00:35 | DX: Z53.21 Procedure and treatment not carried out due to patient leaving prior to being seen by health care provider (principal) ==

== ENCOUNTER 2022-03-31 11:25 | Emergency (ER) | payer MEDICAID ==
[2022-03-31] MEDS: Acetaminophen 500 MG Tab PO ONE (12:28)
[2022-03-31] MEDS: Ketorolac 60 MG/2 ML SDV IM ONE (12:28)
[2022-03-31 12:39] LABS: CORONAVIRUS COVID-19 NAA POSITIVE (NEGATIVE); INFLUENZA A NAA NEGATIVE (NEGATIVE); INFLUENZA B NAA NEGATIVE (NEGATIVE)
[2022-03-31 12:52] LABS: CARBON DIOXIDE,CO2 27.8 mmol/L (21.0-32.0); POTASSIUM,K 3.7 mmol/L (3.5-5.1)
== END 2022-03-31 13:14 | disposition home or self-care (01) ==
LOC: MW.ED 11:25
DX: U07.1 COVID-19 (principal); F17.210 Nicotine dependence, cigarettes, uncomplicated
CPT/HCPCS: 0240U; 36415; 80053; 81001; 85025; 96372; 99284; A9270; J1885; 99283

== ENCOUNTER 2022-06-12 12:46 | Emergency (ER) | payer OTHER, MEDICAID ==
[2022-06-12] MEDS ORDERED: HYDROmorphone 1 MG/ML Syringe IM ONE (14:41)
[2022-06-12] MEDS ORDERED: methylPREDNISolone Sodium Succinate 125 MG/2 ML SDV IM ONE (14:41)
== END 2022-06-12 16:04 | disposition home or self-care (01) ==
LOC: MW.ED 12:46
DX: M54.41 Lumbago with sciatica, right side (principal); M54.42 Lumbago with sciatica, left side; F17.210 Nicotine dependence, cigarettes, uncomplicated
CPT/HCPCS: 72125; 72131; 96372; 99283; J1170; J2930